=== PATIENT | female | born 1960 | race Caucasian/White ===

== ENCOUNTER 2020-04-03 10:54 | Emergency (ER) | payer BC ==
[~2020-04-03] VITALS: Ht 149.9 cm; Wt 79.4 kg
[2020-04-03 11:00] VITALS: Ht 149.9 cm; Wt 79.4 kg
[2020-04-03 14:18] VITALS: BP 149/59
== END 2020-04-03 14:18 | disposition home or self-care (01) ==
LOC: ED 10:54
DX: F41.8 Other specified anxiety disorders (principal); I10 Essential (primary) hypertension; K21.9 Gastro-esophageal reflux disease without esophagitis; G43.909 Migraine, unspecified, not intractable, without status migrainosus; Z90.710 Acquired absence of both cervix and uterus
CPT/HCPCS: Q0092